=== PATIENT | female | born 1930 | race Caucasian/White ===

== ENCOUNTER → 2016-11-04 | Day surgery (SDC) | payer BC, MEDICARE ==
[~2016-11-04] MED LIST: AMIT25TA; CHOL100013 PO; DIPH25CA58 PO; DOCU-27 PO; GUAI-40 PO; IV RINGERS,LACTATED 1000ML 1,000 ML IV SCH; LANS30CA17 PO; LEVO75TA5; LIDOCAINE 2% PF Vial for OR 5 ML VIAL. ONE; LISI1TAB5; METO50TA10; MULT1TAB6 PO; MV-M1TAB36 PO; PRAV40TA2; PROPOFOL 20 ML IV ONE; VITA1TAB3 PO
[2016-11-04 09:37] VITALS: BP 162/88
--- NOTE | 2016-11-05 14:31 | PATHOLOGY ---
PATHOLOGY REPORT * * * * * * * * FINAL DIAGNOSIS: Esophageal biopsy, distal esophagus: - Segments of hyperplastic squamous esophageal mucosa and esophagogastric mucosa showing moderate chronic inflammation, consistent with reflux esophagitis. COMMENT: Sections of the distal esophageal biopsy primarily reveal segments of focally tangentially oriented hyperplastic squamous esophageal mucosa. There is also a segment of esophagogastric mucosa showing moderate chronic inflammation. The findings are consistent with reflux esophagitis. There is no evidence of Ricardo's change, dysplasia, or malignancy. (JPM:; d/t: 11/05/16) REPORT ELECTRONICALLY SIGNED BY: Jamie Ruiz M.D. DATE/TIME: 11/05/2016 14:31 * * * * * * * * GROSS PATHOLOGY: Received in formalin labeled "Kate Armando and distal esophagus bx," are 5 segments of quiñonez soft tissue measuring 2.3 x 0.3 x 0.2 cm in aggregate dimensions and ranging from 0.4 to 0.5 cm in maximum dimension. The specimen is submitted entirely in cassette A1. (TTL; 11/04/2016) INITIAL CPT CODE(S): A; 33409 Professional services performed [place] [address] Technical services performed by [facility] at [address] [place] [address], [address], [place] [address]. SPECIMEN(S) RECEIVED: A.Distal esophagus biopsy r/o dysplasia, Ricardo's CLINICAL HISTORY: Abdominal pain, GERD, history of Ricardo's PATIENT: KATE ARMANDO R /AGE: 804/15/1930 (Age: 86) PATIENT #: [id number] ALT CASE #: SPECIMEN COLLECTION DATE: 11/04/2016 SPECIMEN RECEIVED DATE: 11/04/2016 [facility] - [id number] [place] [address] - PHONE: [phone] * * * END OF REPORT * * *
== END | disposition home or self-care (01) ==
LOC: ENDOS 07:57
PROVIDERS: ATTEND Internal Medicine Gastroenterology
DX: K22.70 Barrett's esophagus without dysplasia (principal); K29.50 Unspecified chronic gastritis without bleeding; K44.9 Diaphragmatic hernia without obstruction or gangrene; E78.00 Pure hypercholesterolemia, unspecified; E03.9 Hypothyroidism, unspecified; I10 Essential (primary) hypertension; E66.9 Obesity, unspecified; M19.90 Unspecified osteoarthritis, unspecified site; Z96.653 Presence of artificial knee joint, bilateral
CPT/HCPCS: 43239; J2704; 88305

== ENCOUNTER → 2016-11-18 | Outpatient (CLI) | payer MEDICARE, BC ==
[2016-11-04 09:37] VITALS: BP 162/88
[~2016-11-18] MED LIST changes: -IV RINGERS,LACTATED 1000ML 1,000 ML IV SCH; -LIDOCAINE 2% PF Vial for OR 5 ML VIAL. ONE; -PROPOFOL 20 ML IV ONE
--- NOTE | 2016-11-18 09:16 | RAD ---
Radionuclide gastric emptying study, 11/18/2016: History: Epigastric pain The study was performed utilizing a solid test meal radiolabeled with 2 mCi of technetium 99m sulfur colloid. The time to half emptying of the test meal from the patient's stomach was estimated at 160 minutes. A normal T1/2 is 60 minutes +/- 30 minutes. There was also extension of activity toward the diaphragmatic hiatus region suggesting a hiatal hernia or mild GE reflux. IMPRESSION: 1. Mildly delayed gastric emptying as described above. 2. Superior extension of gastric activity suggesting the presence of a hiatal hernia or mild gastroesophageal reflux.
== END | disposition home or self-care (01) ==
LOC: NM 07:21
PROVIDERS: ATTEND Internal Medicine Gastroenterology
DX: K30 Functional dyspepsia (principal)
CPT/HCPCS: 78264; A9541

== ENCOUNTER → 2020-01-18 | Outpatient (CLI) | payer MEDICARE, BC ==
[2016-11-04 09:37] VITALS: BP 162/88
[~2020-01-18] MED LIST changes: +COLE1TAB2 PO; +DOCU-109 PO; -DOCU-27 PO; +DONE5TAB7 PO; +LANS30CA PO; -LANS30CA17 PO; +LANS30CA66 PO; +LISI1TAB19; +LISI1TAB19 PO; -LISI1TAB5; -METO50TA10; +METO50TA29
== END | disposition home or self-care (01) ==
LOC: LAB 10:40
PROVIDERS: ATTEND Internal Medicine Gastroenterology
DX: Z01.818 Encounter for other preprocedural examination (principal); Z11.59 Encounter for screening for other viral diseases; R19.7 Diarrhea, unspecified
CPT/HCPCS: C9803; U0003; 36415

== ENCOUNTER → 2020-01-24 | Day surgery (SDC) | payer MEDICARE, BC ==
[~2020-01-24] MED LIST changes: +IV RINGERS,LACTATED 1000ML 1,000 ML IV SCH; +LIDOCAINE 2% PF 5 ML VIAL. ONE; +PROPOFOL 10 MG/ML (20ML) VIAL. IV ONE
[2020-01-24 09:20] VITALS: BP 143/67
--- NOTE | 2020-01-25 16:06 | PATHOLOGY ---
[facility] Accession Number: [id number] . 01 Material submitted: . colon - RANDOM COLON BIOPSIES . 01 Clinical history: . Diarrhea . 02 Diagnosis: Colonic mucosa, random colon biopsies: - Collagenous colitis. (JPM:bing; 01/25/2020) S 01/25/2020 0921 Local . 02 Comment: Sections of the random colon biopsy reveal multiple segments of colonic mucosa showing a mild chronic active colitis without crypt architectural distortion. Collagen is deposited around the absorptive capillary complex beneath the surface epithelium. The findings are supportive of the diagnosis of collagenous colitis. There is no evidence of a chronic destructive colitis. (JPM:bing; 01/25/2020) . 02 Electronically signed: . Jamie Ruiz MD, Pathologist NPI- [id number] . 01 Gross description: . The specimen is received in formalin, labeled "Yunghans, Kate, random colon biopsies" and multiple fragments of pink-quiñonez tissue measuring 2.2 x 0.7 x 0.2 cm in aggregate which are entirely submitted in A1. ([facility]; 01/24/2020) JFQ/JFQ 01/24/2020 1701 Local . 02 Pathologist provided ICD-10: K52.831 . 02 CPT . 566124 Specimen Comment: A courtesy copy of this report has been sent to [phone], [phone] Specimen Comment: [id number] Specimen Comment: Report sent to / DR GOMEZ Performed at: 01 [facility] [address], [place], [place] [id number] MD Lorenzo Carpenter MD Phone: [phone] Performed at: 02 [facility] [address] [place], [place] [id number] MD Jamie Ruiz MD Phone: [phone]
== END | disposition home or self-care (01) ==
LOC: ENDOS 07:00
PROVIDERS: ATTEND Internal Medicine Gastroenterology
DX: R19.7 Diarrhea, unspecified (principal); K52.89 Other specified noninfective gastroenteritis and colitis; K64.0 First degree hemorrhoids; K57.30 Diverticulosis of large intestine without perforation or abscess without bleeding; G47.33 Obstructive sleep apnea (adult) (pediatric); E78.00 Pure hypercholesterolemia, unspecified; K44.9 Diaphragmatic hernia without obstruction or gangrene; M19.90 Unspecified osteoarthritis, unspecified site; D64.9 Anemia, unspecified; K21.9 Gastro-esophageal reflux disease without esophagitis; I10 Essential (primary) hypertension; E03.9 Hypothyroidism, unspecified; Z82.49 Family history of ischemic heart disease and other diseases of the circulatory system; Z88.1 Allergy status to other antibiotic agents; Z88.8 Allergy status to other drugs, medicaments and biological substances; Z80.3 Family history of malignant neoplasm of breast; Z80.0 Family history of malignant neoplasm of digestive organs; Z90.710 Acquired absence of both cervix and uterus; Z90.49 Acquired absence of other specified parts of digestive tract; Z98.890 Other specified postprocedural states
CPT/HCPCS: 45380; J2704; J3490; 88305